=== PATIENT | male | born 1995 | race African-American/Black ===

== ENCOUNTER 2019-05-19 11:19 | Emergency (ER) | payer MEDICAID ==
[~2019-05-19] VITALS: Ht 172.7 cm; Wt 65.0 kg
[2019-05-19 15:03] VITALS: BP 125/76
== END 2019-05-19 15:03 | disposition home or self-care (01) ==
LOC: ER 11:19
DX: L29.9 Pruritus, unspecified (principal)
CPT/HCPCS: 99283